=== PATIENT | male | born 1980 | race Caucasian/White ===

== ENCOUNTER 2020-04-30 12:00 | Emergency (ER) | payer SELFPAY ==
[~2020-04-30] VITALS: Ht 167.6 cm; Wt 99.0 kg
[2020-04-30 12:11] VITALS: BP 146/94
[2020-04-30 13:26] LABS: BASOPHILS % (AUTO) 1 % (0-1); EOSINOPHILS % (AUTO) 4 % (1-7); LYMPHOCYTES % (AUTO) 20 % (22-44); MEAN CORPUSCULAR HEMOGLOBIN 31.4 pg (27.5-34.5); MEAN CORPUSCULAR HGB CONC 33.8 g/dL (33.2-36.2); MEAN PLATELET VOLUME 8.2 fL (7.4-10.4); MONOCYTES % (AUTO) 10 % (2-9); NEUTROPHILS % (AUTO) 66 % (42-75); PLATELET COUNT 290 x10^3/uL (130-400); RED BLOOD COUNT 4.64 x10^6/uL (4.38-5.82); RED CELL DISTRIBUTION WIDTH 12.4 % (9.4-14.8)
[2020-04-30 13:27] LABS: MD NO
[2020-04-30 13:38] LABS: ALBUMIN 3.2 g/dL (3.4-5.0); ANION GAP 8 mmol/L (5-15); CALCIUM 9.2 mg/dL (8.5-10.1); CHLORIDE 105 mmol/L (98-107); CREATININE 0.76 mg/dL (0.7-1.3)
--- NOTE | 2020-04-30 13:45 | NUR ---
NO ANSWER X 1
--- NOTE | 2020-04-30 13:56 | NUR ---
NO ANSWER X 2
--- NOTE | 2020-04-30 14:01 | NUR ---
NO ANSWER X 3
[2020-04-30] MEDS ORDERED: METF500T17 PO (20:11)
[2020-04-30] MEDS ORDERED: GLIP10TA13 PO (20:11)
[2020-05-01] MEDS ORDERED: MAGN250T8 PO (02:40)
== END 2020-04-30 14:04 | disposition left against medical advice (07) ==
LOC: ED 12:50
DX: L02.214 Cutaneous abscess of groin (principal)
CPT/HCPCS: 36415; 76870; 80048; 82040; 85025; 99284

== ENCOUNTER 2020-04-30 17:18 | Inpatient (IN) | payer BC ==
[~2020-04-30] VITALS: Ht 167.6 cm; Wt 98.0 kg
--- NOTE | 2020-04-30 18:23 | NUR ---
IN ROOM FOR EVAL. PATIENT SEEN AT FOR ABCESS TO [facility], STARTED ON AUGMENTIN SUNDAY, NO RESOLVE OF SYMPTOMS. CHECKED IN [facility] TODAY FOR [facility], DID NOT RESPOND TO BEING CALLED BACK. US RESULTS AND LABS RESULTED FROM [facility] TODAY. MONITORING IN PLACE, DIXIE FERNANDO
--- NOTE | 2020-04-30 18:27 | NUR ---
BLOOD CULTURES TO BE DRAWN PRIOR TO ABX ADMIN
[2020-04-30] MEDS ORDERED: VANCOMYCIN 2,500 MG in SODIUM CHLORIDE 0.9% 500 ML IV ONE (18:30)
[2020-04-30] MEDS ORDERED: SODIUM CHLORIDE FLUSH 10ML SYR IVF ONE (18:30)
[2020-04-30] MEDS ORDERED: DOCUSATE 100 MG CAPSULE PO PRN (18:30)
[2020-04-30] MEDS ORDERED: PIPERACILLIN/TAZO/PMX 3.375GM 50 ML IV ONE (18:30)
[2020-04-30] MEDS ORDERED: SODIUM CHLORIDE 0.9% 1,000ML IVBOLUS ONE (18:30)
[2020-04-30] MEDS ORDERED: VANCOMYCIN PER PHARMACY MC PRN (18:30)
[2020-04-30] MEDS ORDERED: PIPERACILLIN/TAZO/PMX 3.375GM 50 ML ONE (18:44)
--- NOTE | 2020-04-30 18:50 | NUR ---
blood cultures x2 drawn prior to abx admin
--- NOTE | 2020-04-30 19:00 | NUR ---
ASSUMED CARE OF PATIENT.
[2020-04-30] MEDS ORDERED: HEPARIN 5,000 UNITS/ML, 1ML ONE (19:26)
--- NOTE | 2020-04-30 19:30 | NUR ---
MARGARITA RN: PT CURRENTLY RESTING ON Prescreen. NO ACUTE DISTRESS NOTED AT THIS TIME. PT AO X 4. PT VERBALIZES UNDERSTANDING OF POC. PT MEDICATED PER SEP. FS 148. PT ON CONT BP AND SPO2 MONITORS. CALL LIGHT WITHIN REACH. WILL CONT TO MONITOR PT.
[2020-04-30] MEDS: HEPARIN 5,000 UNITS/ML, 1ML SQ SCH (19:39)
[2020-04-30] MEDS ORDERED: INSULIN SINGLE DOSE, ER ONE (19:57)
[2020-04-30] MEDS: INSULIN REGULAR 100 UNITS/ML, 3ML VIAL SQ-INSULIN SCH (19:58)
[2020-04-30] MEDS ORDERED: GLIP10TA13 PO (20:11)
[2020-04-30] MEDS ORDERED: METF500T17 PO (20:11)
[2020-04-30 20:31] VITALS: BP 148/92
[2020-04-30] MEDS: SODIUM CHLORIDE 0.9% 1,000 ML IV SCH ×2 (21:31→22:13)
[2020-04-30] MEDS: ACETAMINOPHEN 325 MG TABLET PO PRN (21:34)
[2020-04-30] MEDS: AMPICILLIN/SULBACTAM 3 GM in SODIUM CHLORIDE 0.9% 100 ML IV SCH (23:50)
[2020-05-01 00:24] VITALS: BP 125/67
[2020-05-01] MEDS: INSULIN REGULAR 100 UNITS/ML, 3ML VIAL SQ-INSULIN SCH (02:11)
[2020-05-01] MEDS ORDERED: MAGNESIUM OXIDE 400 MG TABLET PO PRN (02:30)
[2020-05-01] MEDS ORDERED: MAGN250T8 PO (02:40)
[2020-05-01] MEDS: HEPARIN 5,000 UNITS/ML, 1ML SQ SCH ×3 (04:01→21:44)
[2020-05-01] MEDS: SODIUM CHLORIDE 0.9% 1,000 ML IV SCH (04:01)
[2020-05-01 04:23] LABS: BASOPHILS % (AUTO) 1 % (0-1); EOSINOPHILS % (AUTO) 3 % (1-7); LYMPHOCYTES % (AUTO) 28 % (22-44); MEAN CORPUSCULAR HEMOGLOBIN 31.9 pg (27.5-34.5); MEAN CORPUSCULAR HGB CONC 33.8 g/dL (33.2-36.2); MEAN PLATELET VOLUME 7.9 fL (7.4-10.4); MONOCYTES % (AUTO) 10 % (2-9); NEUTROPHILS % (AUTO) 58 % (42-75); PLATELET COUNT 277 x10^3/uL (130-400); RED BLOOD COUNT 4.07 x10^6/uL (4.38-5.82); RED CELL DISTRIBUTION WIDTH 12.5 % (9.4-14.8)
[2020-05-01 04:24] LABS: MD NO
[2020-05-01 04:32] LABS: ANION GAP 6 mmol/L (5-15); CALCIUM 8.4 mg/dL (8.5-10.1); CHLORIDE 108 mmol/L (98-107)
[2020-05-01 04:33] LABS: CREATININE 0.71 mg/dL (0.7-1.3)
[2020-05-01] MEDS: ACETAMINOPHEN 325 MG TABLET PO PRN ×2 (08:15→21:44)
[2020-05-01] MEDS: AMPICILLIN/SULBACTAM 3 GM in SODIUM CHLORIDE 0.9% 100 ML IV SCH ×2 (08:15→16:42)
[2020-05-01] MEDS ORDERED: VANCOMYCIN PER PHARMACY MC PRN (08:30)
[2020-05-01 09:36] VITALS: BP 138/82
[2020-05-01] MEDS ORDERED: VANCOMYCIN 2,000 MG in SODIUM CHLORIDE 0.9% 500 ML IV ONE (10:00)
[2020-05-01] MEDS ORDERED: PHARMACOKINETIC MONITORING MC PRN (10:00)
[2020-05-01] MEDS: INSULIN LISPRO 100 UNITS/ML, PEN SQ-INSULIN SCH ×3 (11:19→22:20)
[2020-05-01] MEDS: HYDROcodone/APAP 5/325 TABLET PO PRN ×2 (11:20→18:08)
[2020-05-01 15:07] VITALS: BP 136/84
[2020-05-01] MEDS ORDERED: DOXYCYCLINE 100 MG in DEXTROSE 5% 250 ML IV SCH (18:00)
[2020-05-01 20:08] VITALS: BP 130/84
[2020-05-01] MEDS ORDERED: VANCOMYCIN 1,600 MG in SODIUM CHLORIDE 0.9% 250 ML IV SCH (22:00)
[2020-05-01] MEDS: INSULIN GLARGINE 100 UNITS/ML, PEN SQ-INSULIN SCH (22:20)
[2020-05-02] MEDS: AMPICILLIN/SULBACTAM 3 GM in SODIUM CHLORIDE 0.9% 100 ML IV SCH ×3 (00:14→16:28)
[2020-05-02 00:22] VITALS: BP 134/88
[2020-05-02] MEDS ORDERED: MAGNESIUM OXIDE 400 MG TABLET PO PRN (00:30)
[2020-05-02] MEDS: HEPARIN 5,000 UNITS/ML, 1ML SQ SCH ×3 (03:36→20:45)
[2020-05-02] MEDS: ACETAMINOPHEN 325 MG TABLET PO PRN ×4 (05:25→21:04)
[2020-05-02] MEDS ORDERED: ONDANSETRON 2MG/ML, 2ML IVPush PRN (05:30)
[2020-05-02 06:51] VITALS: BP 126/83
[2020-05-02] MEDS: INSULIN LISPRO 100 UNITS/ML, PEN SQ-INSULIN SCH ×4 (07:42→21:04)
[2020-05-02] MEDS: metFORMIN XR 500 MG TAB.ER.24H PO SCH (08:42)
[2020-05-02] MEDS: VANCOMYCIN 1,800 MG in SODIUM CHLORIDE 0.9% 250 ML IV SCH ×2 (11:43→22:59)
[2020-05-02 12:38] VITALS: BP 136/88
[2020-05-02 20:03] VITALS: BP 138/88
[2020-05-02] MEDS: INSULIN GLARGINE 100 UNITS/ML, PEN SQ-INSULIN SCH (21:04)
[2020-05-03 00:05] VITALS: BP 131/86
[2020-05-03] MEDS: AMPICILLIN/SULBACTAM 3 GM in SODIUM CHLORIDE 0.9% 100 ML IV SCH ×3 (00:39→17:07)
[2020-05-03] MEDS: ACETAMINOPHEN 325 MG TABLET PO PRN (02:30)
[2020-05-03] MEDS: HEPARIN 5,000 UNITS/ML, 1ML SQ SCH ×2 (03:55→11:42)
[2020-05-03 07:51] VITALS: BP 137/84
[2020-05-03] MEDS: metFORMIN XR 500 MG TAB.ER.24H PO SCH (08:34)
[2020-05-03] MEDS: INSULIN LISPRO 100 UNITS/ML, PEN SQ-INSULIN SCH ×3 (08:34→17:08)
[2020-05-03] MEDS: VANCOMYCIN 1,800 MG in SODIUM CHLORIDE 0.9% 250 ML IV SCH (11:42)
[2020-05-03 15:39] VITALS: BP 147/94
[2020-05-03] MEDS ORDERED: AMOX1TAB64 PO (17:54)
[2020-05-03] MEDS ORDERED: DOXY100T PO (17:54)
[2020-05-03] MEDS ORDERED: CELE200C PO (17:55)
[2020-05-03] MEDS ORDERED: VANCOMYCIN 1,300 MG in SODIUM CHLORIDE 0.9% 250 ML IV SCH (20:00)
== END 2020-05-03 19:20 | disposition home or self-care (01) | DRG 728 ==
LOC: ED 20:07 → EDIP 20:14 → 3N 20:27
PROVIDERS: ADMIT Family Medicine; ATTEND Internal Medicine
DX: N49.2 Inflammatory disorders of scrotum (principal); L02.214 Cutaneous abscess of groin; E11.65 Type 2 diabetes mellitus with hyperglycemia; R00.0 Tachycardia, unspecified; Z90.49 Acquired absence of other specified parts of digestive tract
CPT/HCPCS: 36415; 71045; 76870; 80048; 80202; 82962; 85025; 87040; 87081; 93306; G0378; J0295; J1644; J1815; J2405; J2543; J3370; J7030; J7040; J7050